=== PATIENT | female | born 1985 | race Caucasian/White ===

== ENCOUNTER 2017-02-02 13:55 | Emergency (ER) | payer MEDICAID ==
[~2017-02-02] VITALS: Ht 172.7 cm; Wt 67.0 kg
[2017-02-02] MEDS ORDERED: SODIUM CHLORIDE 0.9% 1,000 ML IV ONE (14:33)
[2017-02-02] MEDS ORDERED: KETOROLAC 30 MG/1 ML ONE (14:47)
[2017-02-02] MEDS ORDERED: ONDANSETRON 2MG/ML, 2ML ONE (14:48)
[2017-02-02] MEDS ORDERED: KETOROLAC 30 MG/1 ML IVPush ONE (15:00)
[2017-02-02] MEDS ORDERED: ONDANSETRON 2MG/ML, 2ML IVPush ONE (15:00)
[2017-02-02] MEDS ORDERED: SODIUM CHLORIDE 0.9% 1,000ML IVBOLUS ONE (15:00)
[2017-02-02] MEDS ORDERED: SODIUM CHLORIDE FLUSH 10ML SYR IVF ONE (15:00)
[2017-02-02 15:05] LABS: HEMOGLOBIN 14.8 g/dL (11.7-16.4); WHITE BLOOD COUNT 16.1 x10^3/uL (3.4-10)
[2017-02-02 15:18] LABS: BLOOD UREA NITROGEN 9 mg/dL (7-18)
[2017-02-02 15:24] LABS: ASPARTATE AMINO TRANSFERASE 12 U/L (15-37)
[2017-02-02 16:59] VITALS: BP 105/57
== END 2017-02-02 18:17 | disposition home or self-care (01) ==
LOC: ED 16:15
DX: H66.003 Acute suppurative otitis media without spontaneous rupture of ear drum, bilateral (principal); J20.8 Acute bronchitis due to other specified organisms
CPT/HCPCS: 36415; 71010; 76801; 80053; 81001; 83605; 84702; 85025; 87040; 87086; 96361; 96374; 96375; 99285; J1885; J2405; J7030